=== PATIENT | female | born 1945 | race Caucasian/White ===

== ENCOUNTER 2018-10-27 18:54 | Emergency (ER) | payer MEDICARE, MEDICAID ==
[~2018-10-27] VITALS: Wt 71.4 kg
[~2018-10-27 18:54] MED LIST: ABILIFY MA400 MG/Via IM; ABILIFY5 MG PO; ALPRAZOLAM0.25 MG PO; BENZTROPINE ME0.5 MG PO; BENZTROPINE1 MG PO; CELEXA 20MG20 MG/TA1 PO; CHILDREN'S ASPI81 M1 PO; CLOPIDOGREL75 MG PO; DEPAKOTE ER500 MG PO; DIABETA5 MG PO; DILTIAZEM120 MG PO; FUROCOT20 MG PO; FUROSEMIDE PO; GABAPENTIN300 MG PO; LAMICTAL 25MG T25 MG PO; LAMICTAL ODT100 MG; LAMICTAL25 MG PO; LOW DOSE ASPIRI81 MG PO; MACRODANTIN50 MG/CA1 PO; METFORMIN PO; METFORMIN850 MG PO; NAVANE2 MG PO; NEURONTIN300 MG PO; NEURONTIN300 MG/CAP PO; NICODERM C21 MG/PATC TD; NORCO 325 MG-51 TA1 PO; NORCO 325 MG-51 TAB PO; NORVASC 5MG5 MG/TAB PO; PLAVIX 75MG TAB75 MG PO; REGLAN 10MG10 MG/TAB PO; SIMVASTATIN10 M1 PO; TRIAMTERENE/HCT1 CAP PO; VIBRAMYCIN100 MG PO; XANAX .25M0.25 MG/TA PO; ZESTRIL5 MG PO
[2018-10-27 19:34] LABS: HEMATOCRIT 29.4 % (37.0-47.0); MEAN CELL VOLUME 100 fl (78-100); MEAN CORPUSCULAR HEMOGLOBIN 31 pg (27-31); MEAN CORPUSCULAR HGB CONC 31 g/dL (33-37); MEAN PLATELET VOLUME 10.3 fl (7.4-10.4); PLATELET COUNT 237 K/mm3 (130-400); RED BLOOD COUNT 2.95 M/mm3 (4.10-5.30); RED CELL DISTRIBUTION WIDTH 15.2 % (11.5-14.5); WHITE BLOOD COUNT 15.9 K/mm3 (4.8-10.8)
[2018-10-27] MEDS ORDERED: ALBUTEROL SULFAT3 M3 IH (19:37)
[2018-10-27 19:45] LABS: ALBUMIN 3.4 g/dL (3.5-5.0); ALT/SGPT 11 U/L (9-52); AST-SGOT 19 U/L (14-36); CARBON DIOXIDE 27 mmol/L (22-30); GLUCOSE 319 mg/dL (65-105); SODIUM 135 mmol/L (137-145); TOTAL BILIRUBIN 0.4 mg/dL (0.2-1.3); TOTAL PROTEIN 6.4 g/dL (6.3-8.2)
[2018-10-27 19:50] LABS: BAND 1 % (0-10); LYMPHOCYTE 8 % (20-51)
[2018-10-27 19:51] LABS: MONOCYTE 4 % (3-10); NEUTROPHILS 87 % (42-75)
[2018-10-27 19:52] LABS: POLYCHROMASIA 2+
[2018-10-27 19:57] LABS: CKMB ISOENZYME 1.9 ng/mL (0.6-3.5)
[2018-10-27 19:58] LABS: TROPONIN-I < 0.03 ng/mL (0.00-0.06)
[2018-10-27 20:01] LABS: POTASSIUM 6.5 mmol/L (3.6-5.0)
[2018-10-27 20:07] LABS: URINE WBC 0 /hpf (0-3)
[2018-10-27] MEDS ORDERED: FUROSEMIDE20 MG PO (20:07)
[2018-10-27] MEDS ORDERED: DIVALPROEX SOD125 MG PO (20:07)
[2018-10-27] MEDS ORDERED: LORATADINE10 MG PO (20:08)
[2018-10-27] MEDS ORDERED: MELATONIN1 MG PO (20:09)
[2018-10-27] MEDS ORDERED: METFORMIN ER500 MG PO (20:10)
[2018-10-27] MEDS ORDERED: NYSTATIN1 EAC2 MC (20:11)
[2018-10-27] MEDS ORDERED: PRAMIPEXOLE D0.25 MG PO (20:12)
[2018-10-27] MEDS ORDERED: OCUVITE ADULT1 EAC1 PO (20:12)
[2018-10-27 20:13] LABS: URINE APPEARANCE CLEAR; URINE BILIRUBIN NEGATIVE (NEGATIVE); URINE BLOOD NEGATIVE (NEGATIVE); URINE COLOR YELLOW; URINE GLUCOSE NEGATIVE (NEGATIVE); URINE KETONE 1+ (NEGATIVE); URINE LEUKOCYTE ESTERASE NEGATIVE (NEGATIVE); URINE NITRATE NEGATIVE (NEGATIVE); URINE PROTEIN(semi-quant) TRACE mg/dL (NEGATIVE); URINE UROBILINOGEN NORMAL (NORMAL)
[2018-10-27] MEDS ORDERED: CARBIDOPA/LEVODOPA PO (20:13)
[2018-10-27] MEDS ORDERED: VITAMIN B-1000 MCG/T PO (20:14)
[2018-10-27] MEDS ORDERED: GOODSENSE100 MG/5 M PO (20:14)
[2018-10-27] MEDS ORDERED: TYLENOL EXTRA500 M2 PO (20:15)
[2018-10-27 21:35] VITALS: BP 128/65
== END 2018-10-27 21:35 | disposition short-term general hospital (02) ==
LOC: ED 18:54
PROVIDERS: Physician Assistant
DX: J18.1 Lobar pneumonia, unspecified organism (principal); A41.9 Sepsis, unspecified organism; E87.5 Hyperkalemia; R73.9 Hyperglycemia, unspecified; E11.9 Type 2 diabetes mellitus without complications; I10 Essential (primary) hypertension; J44.9 Chronic obstructive pulmonary disease, unspecified; F31.9 Bipolar disorder, unspecified; G20 Parkinson's disease; Z79.82 Long term (current) use of aspirin; Z79.84 Long term (current) use of oral hypoglycemic drugs; Z79.02 Long term (current) use of antithrombotics/antiplatelets
CPT/HCPCS: A4216; J0610; J0696; J1815; J2405; J7030